=== PATIENT | female | born 1950 | race Caucasian/White ===

== ENCOUNTER 2022-12-30 11:42 | Emergency (ER) | payer OTHER ==
--- OUTSIDE RECORDS SUMMARY | 2022-12-30 11:45 | XMS REPORT | Continuity of Care Document ---
:1950 Author Organization [facility] t Address [address] [place] [address] Dr. Vallejo [address] [place] [id number] Care Team Providers Name Role Phone Gilberto Mccord Attending Clinician Unavailable Problems This patient has no known problems. Allergies, Adverse Reactions, Alerts This patient has no known allergies or adverse reactions. Medications This patient has no known medications. Procedures This patient has no known procedures. Encounters Start End Encounter Admission Attending Care Care Encounter Source Date/Time Date/Time Type Type Clinicians Facility Department ID 2022-11-04 [id number] Common 08:12:04 Gilberto [id number] [facility] Results This patient has no known results.
[2022-12-30] MEDS ORDERED: ACETAMINOPHEN 325 MG TABLET ONE (12:26)
--- NOTE | 2022-12-30 13:31 | RAD REPORT ---
EXAM DESCRIPTION: RAD - Chest Single View - 12/30/2022 1:23 pm CLINICAL HISTORY: fever, cough Chest pain. COMPARISON: No comparisons FINDINGS: Portable technique limits examination quality. Interstitial markings are mildly prominent bilaterally likely related to interstitial pulmonary edema or viral infection. The heart is mildly enlarged in size. No displaced fractures.
[2022-12-30 13:36] LABS: SARS-COV-2 RT PCR POSITIVE (NEGATIVE)
--- NOTE | 2022-12-30 13:51 | EDPHYS ---
Physician Documentation [facility] Name: Dennise Story Age: 72 yrs Sex: Female : 1950 Arrival Date: 12/30/2022 Time: 11:48 Bed 25 Private MD: Michell Mccordh ED Physician Mehdi Verdin HPI: 12/30 13:49 This 72 yrs old Female presents to ER via Wheelchair with complaints of Fall Injury, jmm Sinus Pain, Runny Nose. 13:49 The patient or guardian reports cough. Onset: The symptoms/episode began/occurred jmm gradually, 1 day(s) ago. Modifying factors: The symptoms are alleviated by nothing. the symptoms are aggravated by nothing. Is a 72-year-old female with history of atrial fibrillation the presents emerged part with complaints of cough, congestion, fever, body aches. Symptoms began about a day ago. has similar symptoms as well.. Historical: - Allergies: 12:04 PENICILLINS; ld1 12:04 Lidocaine; ld1 12:04 Keflex; ld1 12:04 Morphine; ld1 - Home Meds: 12:04 Eliquis 2.5 mg oral tab 1 tab 2 times per day [Active]; ld1 - PMHx: 12:04 Atrial fibrillation; ld1 - PSHx: 12:04 back surgery; knee replacement; Appendectomy; ld1 - Immunization history:: Adult Immunizations up to date, Client reports receiving the 2nd dose of the Covid vaccine. - Social history:: Smoking status: Patient denies any tobacco usage or history of. Patient/guardian denies using alcohol. ROS: 13:49 Constitutional: Positive for body aches, fever. jmm 13:49 Respiratory: Positive for cough. 13:49 Neuro: Positive for weakness. 13:49 All other systems are negative. Exam: 13:49 Constitutional: This is a well developed, well nourished patient who is awake, alert, jmm and in no acute distress. Head/Face: atraumatic. Eyes: EOMI, no conjunctival erythema appreciated ENT: Moist Mucus Membranes Neck: Trachea midline, Supple Chest/axilla: Normal chest wall appearance and motion. Cardiovascular: Regular rate and rhythm. No edema appreciated Respiratory: Normal respirations, no respiratory distress appreciated Abdomen/GI: Non distended Back: Normal ROM Skin: General appearance color normal MS/ Extremity: Moves all extremities, no obvious deformities appreciated, no edema noted to the lower extremities Neuro: Awake and alert Psych: Behavior is normal, Mood is normal, Patient is cooperative and pleasant Vital Signs: 12:01 BP 141 / 83; Pulse 59; Resp 18; Temp 100.5(O); Pulse Ox 94% on R/A; Weight 106.59 kg; ld1 Height 5 ft. 5 in. (165.10 cm); Pain 0/10; 13:07 BP 131 / 54; Pulse 65; Resp 20; Pulse Ox 94% on R/A; eh3 12:01 Body Mass Index 39.11 (106.59 kg, 165.10 cm) ld1 MDM: 12:05 Patient medically screened. [facility] 13:50 Differential diagnosis: flu, URI, Coronavirus, pneumonia. Data reviewed: vital signs, [facility] nurses notes. Counseling: I had a detailed discussion with the patient and/or guardian regarding: the historical points, exam findings, and any diagnostic results supporting the discharge/admit diagnosis, lab results, radiology results, the need for outpatient follow up, to return to the emergency department if symptoms worsen or persist or if there are any questions or concerns that arise at home. ED course: Patient is alert nontoxic in appearance in the ED. Patient advised follow with PCP and otherwise given strict return precautions. Patient understood agrees plan of care.. 12/30 12:06 Order name: COVID-19/FLU A+B/RSV; Complete Time: 14:34 [facility] 12/30 12:06 Order name: Chest Single View XRAY; Complete Time: 13:36 [facility] Administered Medications: 12:25 Drug: Acetaminophen 650 mg Route: PO; eh3 13:00 Follow up: Response: Pain is decreased [facility] Disposition: 18:11 Co-signature as Attending Physician, Mehdi Verdin DO I was immediately available on-site ms3 in the Emergency Department for consultation in the care of the patient. Disposition Summary: 12/30/22 13:51 Discharge Ordered Location: Home [facility] Condition: Stable [facility] Diagnosis - Coronavirus infection, unspecified [facility] Followup: [facility] - With: Gilberto Mccord, DO - When: 1 - 2 days - Reason: Recheck today's complaints, Continuance of care, Re-evaluation by your physician Discharge Instructions: - Discharge Summary Sheet [facility] - COVID-19 [facility] Forms: - Medication Reconciliation Form [facility] - Thank You Letter brianna - Antibiotic Education brianna - Prescription Opioid Use [facility] Prescriptions: - albuterol sulfate 90 mcg/actuation Inhalation HFA aerosol inhaler - inhale 2 puff by INHALATION route every 4 hours; 1 Pump; Refills: 0, Product jmm Selection Permitted - Zithromax Z-Reynaldo 250 mg Oral Tablet - take 1 tablet by ORAL route as directed for 5 days Day 1 - take two (2) tablets [facility] one time. Day 2, 3, 4 , 5 take one (1) tablet once daily.; 6 tablet; Refills: 0, Product Selection Permitted Signatures: Dispatcher [employer] Osito Jackson PA PA jmm Sims, Marcus, DO DO ms3 Laurita Maciel, RN RN ld1 Arline Tong RN RN eh3
--- NOTE | 2022-12-30 13:51 | ER ---
Nurse's Notes [facility] Name: Dennise Story Age: 72 yrs Sex: Female : 1950 Arrival Date: 12/30/2022 Time: 11:48 Bed 25 Private MD: Gilberto Mccord Diagnosis: Coronavirus infection, unspecified Presentation: 12/30 12:01 Chief complaint: Patient states: Fall last night - EMS picked up off of floor. Pt ld1 negative LOC - on blood thinners. C/O sinus pain, runny nose. Coronavirus screen: At this time, the client does not indicate any symptoms associated with coronavirus-19. Ebola Screen: No symptoms or risks identified at this time. Initial Sepsis Screen: Does the patient meet any 2 criteria? No. Patient's initial sepsis screen is negative. Does the patient have a suspected source of infection? No. Patient's initial sepsis screen is negative. Risk Assessment: Do you want to hurt yourself or someone else? Patient reports no desire to harm self or others. Onset of symptoms was December 30, 2022. 12:01 Method Of Arrival: Wheelchair ld1 12:01 Acuity: KEREN 3 ld1 Triage Assessment: 12:04 General: Appears in no apparent distress. comfortable, Behavior is calm, cooperative, ld1 appropriate for age. Pain: Denies pain. EENT: No signs and/or symptoms were reported regarding the EENT system. Neuro: Level of Consciousness is awake, alert, obeys commands, Oriented to person, place, time, situation. Cardiovascular: Capillary refill < 3 seconds Patient's skin is warm and dry. Respiratory: Airway is patent Respiratory effort is even, unlabored. GI: Abdomen is round non-distended. : No signs and/or symptoms were reported regarding the genitourinary system. Derm: No signs and/or symptoms reported regarding the dermatologic system. Musculoskeletal: No signs and/or symptoms reported regarding the musculoskeletal system. Historical: - Allergies: 12:04 PENICILLINS; ld1 12:04 Lidocaine; ld1 12:04 Keflex; ld1 12:04 Morphine; ld1 - Home Meds: 12:04 Eliquis 2.5 mg oral tab 1 tab 2 times per day [Active]; ld1 - PMHx: 12:04 Atrial fibrillation; ld1 - PSHx: 12:04 back surgery; knee replacement; Appendectomy; ld1 - Immunization history:: Adult Immunizations up to date, Client reports receiving the 2nd dose of the Covid vaccine. - Social history:: Smoking status: Patient denies any tobacco usage or history of. Patient/guardian denies using alcohol. Screenin:00 [facility] ED Fall Risk Assessment (Adult) History of falling in the last 3 months, eh3 including since admission Yes- single mechanical fall (1 pt) Confusion or Disorientation No (0 pts) Intoxicated or Sedated No (0 pts) Impaired Gait Yes (1 pt) Mobility Assist Device Used No (0 pt) Altered Elimination No (0 pt) Score/Fall Risk Level 0 - 2 = Low Risk. Abuse screen: Denies threats or abuse. Denies injuries from another. Nutritional screening: No deficits noted. Tuberculosis screening: No symptoms or risk factors identified. Vital Signs: 12:01 BP 141 / 83; Pulse 59; Resp 18; Temp 100.5(O); Pulse Ox 94% on R/A; Weight 106.59 kg; ld1 Height 5 ft. 5 in. (165.10 cm); Pain 0/10; 13:07 BP 131 / 54; Pulse 65; Resp 20; Pulse Ox 94% on R/A; eh3 12:01 Body Mass Index 39.11 (106.59 kg, 165.10 cm) ld1 ED Course: 11:48 Patient arrived in ED. rg4 11:48 Gilberto Mccord DO is Private Physician. rg4 11:53 Osito Connor PA is PHCP. [facility] 11:54 Mehdi Verdin DO is Attending Physician. m 12:04 Triage completed. ld1 12:04 Arm band placed on right wrist. ld1 12:17 Arline Tong, RN is Primary Nurse. eh3 13:00 Patient has correct armband on for positive identification. Bed in low position. Call eh3 light in reach. Side rails up X2. Pulse ox on. NIBP on. 13:25 Chest Single View XRAY In Process Unspecified. EDMS 13:51 Gilberto Mccord DO is Referral Physician. jmm 14:04 No provider procedures requiring assistance completed. Patient did not have IV access eh3 during this emergency room visit. Administered Medications: 12:25 Drug: Acetaminophen 650 mg Route: PO; 3 13:00 Follow up: Response: Pain is decreased 3 Medication: 14:05 VIS not applicable for this client. 3 Outcome: 13:51 Discharge ordered by . emilia 14:04 Discharged to home ambulatory, with family. 3 14:04 Condition: stable 14:04 Discharge instructions given to patient, Instructed on discharge instructions, follow up and referral plans. medication usage, Demonstrated understanding of instructions, follow-up care, medications, Prescriptions given X 2. 14:05 Patient left the ED. 3 Signatures: Dispatcher [employer] EDMS Osito Connor PA PA jmm Garcia, Rubi rg4 Laurita Maciel RN RN ld1 Arline Tong RN RN 3
[2022-12-30 14:36] VITALS: TEMP 100.5; O2SAT 94
[2022-12-30 14:37] VITALS: BP 131/54
== END 2022-12-30 14:05 | disposition home or self-care (01) ==
LOC: ER 11:42
DX: U07.1 COVID-19 (principal); I48.91 Unspecified atrial fibrillation; Z79.01 Long term (current) use of anticoagulants; Z88.0 Allergy status to penicillin; Z88.5 Allergy status to narcotic agent; Z88.8 Allergy status to other drugs, medicaments and biological substances
CPT/HCPCS: 0241U; 71045

== ENCOUNTER 2024-03-14 21:03 | Emergency (ER) | payer BC, OTHER ==
--- OUTSIDE RECORDS SUMMARY | 2024-03-14 21:07 | XMS REPORT | Continuity of Care Document ---
Author Name Unknown Address [address] [facility] [place] [address] [facility] thconnect Address [address] [facility] [address] [place] [address] Care Team Providers Care Mobile Lab Technician Name Role Phone Gilberto Mccord Attending Clinician Unavailable Problems Condition Name Condition Details Condition Category Status Onset Date Resolution Date Last Treatment Date Treating Clinician Comments Source [id number] Paroxysmal atrial fibrillati on Problem Common [facility] [id number] Morbid (severe) obesity due to excess calories Problem Common [facility] [id number] Mixed hyperlipid emia Problem [facility] [id number] Essential (primary) hypertensi on Problem Common [facility] [id number] Acquired hypothyroi dism Problem Common [facility] [id number] Vitamin D deficiency Problem Common [facility] [id number] Body mass index [BMI] 40.0-44.9, adult Problem Common [facility] [id number] Vitreous floaters of both eyes Problem Common [facility] [id number] Presbyopia Problem Comm on [facility] [id number] Systolic congestive heart failure, unspecifie d HF chronicity Problem Common [facility] [id number] Pseudophak ia Problem Common [facility] [id number] Macular degenerati on, unspecifie d laterality , unspecifie d type Problem [facility] Allergies, Adverse Reactions, Alerts Allergy Name Allergy Type Status Severity Reaction(s) Onset Date Inactive Date Treating Clinician Comments Source [id number] Drug allergy Active Unknown [facility] 8091 Drug allergy Active Unknown [facility] lidocain e lidocain e Active Unknown [facility] morphine morphine Active Unknown Commo n [facility] Social History Social Habit Start Date Stop Date Quantity Comments Source Sex Assigned At [facility] History of Tobacco Use [facility] Smoking Status Start Date Stop Date Source Never Smoker [facility] Medications Ordered Medication Name Filled Medication Name Start Date Stop Date Current Medication? Ordering Clinician Indication Dosage Frequency Signature (SIG) Comments Components Source Polymyxin B-Trimethop rim 55656-1.1 UNIT/ML Polymyxin B-Trimethop rim 07178-0.1 UNIT/ML 3-0 - 00:00: 00 No 1{drop_ into_af fected_ eye} QID Polymyxin B-Trimetho prim 94691-9.1 UNIT/ML Furosemide 20 MG Furosemide 20 MG 3-0 - 00:00: 00 No QD Furosemide 20 MG Polymyxin B-Trimethop rim 14695-0.1 UNIT/ML Polymyxin B-Trimethop rim 68912-9.1 UNIT/ML 3-0 12 00:00: 00 No 1{drop_ into_af fected_ eye} QID Polymyxin B-Trimetho prim 74416-7.1 UNIT/ML Furosemide 20 MG Furosemide 20 MG 2023-0 -12 00:00: 00 No QD Furosemide 20 MG Polymyxin B-Trimethop rim 95516-2.1 UNIT/ML Polymyxin B-Trimethop rim 60643-0.1 UNIT/ML 3-0 -12 00:00: 00 No 1{drop_ into_af fected_ eye} QID Polymyxin B-Trimetho prim 00108-3.1 UNIT/ML Furosemide 20 MG Furosemide 20 MG 2023-0 -12 00:00: 00 No QD Furosemide 20 MG Polymyxin B-Trimethop rim 28127-6.1 UNIT/ML Polymyxin B-Trimethop rim 93979-2.1 UNIT/ML 3-0 5-12 00:00: 00 No 1{drop_ into_af fected_ eye} QID Polymyxin B-Trimetho prim 73791-4.1 UNIT/ML Furosemide 20 MG Furosemide 20 MG 3-0 5-12 00:00: 00 No QD Furosemide 20 MG Polymyxin B-Trimethop rim 60416-2.1 UNIT/ML Polymyxin B-Trimethop rim 53011-9.1 UNIT/ML 2022-0 -12 00:00: 00 No 1{drop_ into_af fected_ eye} QID Polymyxin B-Trimetho prim 69633-5.1 UNIT/ML Furosemide 20 MG Furosemide 20 MG 2022-0 5- 00:00: 00 No QD Furosemide 20 MG Sucralfate 1 GM Sucralfate 1 GM 0 2- 00:00: 00 No 1{table t_on_an _empty_ stomach } QD Sucralfate 1 GM Sucralfate 1 GM Sucralfate 1 2022-0 2-17 00:00: 00 No 1{table t_on_an _empty_ stomach } QD Sucralfate 1 GM Sucralfate 1 GM Sucralfate 1 2022-0 2-17 00:00: 00 No 1{table t_on_an _empty_ stomach } QD Sucralfate 1 GM Sucralfate 1 GM Sucralfate 1 2022-0 2-17 00:00: 00 No 1{table t_on_an _empty_ stomach } QD Sucralfate 1 GM Sucralfate 1 GM Sucralfate 1 2022-0 2-17 00:00: 00 No 1{table t_on_an _empty_ stomach } QD Sucralfate 1 GM Sucralfate 1 GM Sucralfate 1 GM 2022-0 2-17 00:00: 00 No 1{table t_on_an _empty_ stomach } QD Sucralfate 1 GM Sucralfate 1 GM Sucralfate 1 GM 2022-0 2-17 00:00: 00 No 1{table t_on_an _empty_ stomach } QD Sucralfate 1 GM Sucralfate 1 GM Sucralfate 1 GM 2023-0 2-17 00:00: 00 No 1{table t_on_an _empty_ stomach } QD Sucralfate 1 GM Sucralfate 1 GM Sucralfate 1 2-17 00:00: 00 No 1{table t_on_an _empty_ stomach } QD Sucralfate 1 GM Sucralfate 1 GM Sucralfate 1 2-17 00:00: 00 No 1{table t_on_an _empty_ stomach } QD Sucralfate 1 GM Sucralfate 1 GM Sucralfate 1 2-17 00:00: 00 No 1{table t_on_an _empty_ stomach } QD Sucralfate 1 GM Sucralfate 1 GM Sucralfate 1 2-17 00:00: 00 No 1{table t_on_an _empty_ stomach } QD Sucralfate 1 GM Sucralfate 1 GM Sucralfate 1 2-17 00:00: 00 No 1{table t_on_an _empty_ stomach } QD Sucralfate 1 GM Sucralfate 1 GM Sucralfate 1 2-17 00:00: 00 No 1{table t_on_an _empty_ stomach } QD Sucralfate 1 GM Sucralfate 1 GM Sucralfate 1 2-17 00:00: 00 No 1{table t_on_an _empty_ stomach } QD Sucralfate 1 GM Vitamin D3 Vitamin D3 No Vitamin D3 Eliquis 5 MG Eliquis 5 MG No 1{table t} BID Eliquis 5 MG Benzonatate 200 MG Benzonatate 200 MG No 1{capsu le} TID Benzonatat e 200 MG Levothyroxi ne Sodium 75 MCG Levothyroxi ne Sodium 75 MCG No QD Levothyrox ine Sodium 75 MCG Spironolact one 25 MG Spironolact one 25 MG No 1{table t} QD Spironolac tone 25 MG Flecainide Acetate 100 MG Flecainide Acetate 100 MG No Flecainide Acetate 100 MG Lasix 40 MG Lasix 40 MG No 1{table t} QD Lasix 40 MG Metoprolol Tartrate 50 MG Metoprolol Tartrate 50 MG No Metoprolol Tartrate 50 MG Vitamin D3 Vitamin D3 No Vitamin D3 Eliquis 5 MG Eliquis 5 MG No 1{table t} BID Eliquis 5 MG Benzonatate 200 MG Benzonatate 200 MG No 1{capsu le} TID Benzonatat e 200 MG Levothyroxi ne Sodium 75 MCG Levothyroxi ne Sodium 75 MCG No QD Levothyrox ine Sodium 75 MCG Spironolact one 25 MG Spironolact one 25 MG No 1{table t} QD Spironolac tone 25 MG Flecainide Acetate 100 MG Flecainide Acetate 100 MG No Flecainide Acetate 100 MG Lasix 40 MG Lasix 40 MG No 1{table t} QD Lasix 40 MG Metoprolol Tartrate 50 MG Metoprolol Tartrate 50 MG No Metoprolol Tartrate 50 MG Metoprolol Tartrate 50 MG Metoprolol Tartrate 50 MG No Metoprolol Tartrate 50 MG Benzonatate 200 MG Benzonatate 200 MG No 1{capsu le} TID Benzonatat e 200 MG Vitamin B12 Vitamin B12 No Vi tamin B12 Spironolact one 25 MG Spironolact one 25 MG No 1{table t} QD Spironolac tone 25 MG Levothyroxi ne Sodium 75 MCG Levothyroxi ne Sodium 75 MCG No QD Levothyrox ine Sodium 75 MCG Eliquis 5 MG Eliquis 5 MG No 1{table t} BID Eliquis 5 MG Flecainide Acetate 100 MG Flecainide Acetate 100 MG No BID Flecainide Acetate 100 MG Furosemide 20 MG Furosemide 20 MG No QD Furosemide 20 MG Metoprolol Tartrate 50 MG Metoprolol Tartrate 50 MG No Metoprolol Tartrate 50 MG Benzonatate 200 MG Benzonatate 200 MG No 1{capsu le} TID Benzonatat e 200 MG Vitamin B12 Vitamin B12 No Vi tamin B12 Spironolact one 25 MG Spironolact one 25 MG No 1{table t} QD Spironolac tone 25 MG Levothyroxi ne Sodium 75 MCG Levothyroxi ne Sodium 75 MCG No QD Levothyrox ine Sodium 75 MCG Eliquis 5 MG Eliquis 5 MG No 1{table t} BID Eliquis 5 MG Flecainide Acetate 100 MG Flecainide Acetate 100 MG No BID Flecainide Acetate 100 MG Furosemide 20 MG Furosemide 20 MG No QD Furosemide 20 MG Eliquis 5 MG Eliquis 5 MG No 1{table t} BID Eliquis 5 MG Metoprolol Tartrate 50 MG Metoprolol Tartrate 50 MG No Metoprolol Tartrate 50 MG Benzonatate 200 MG Benzonatate 200 MG No 1{capsu le} TID Benzonatat e 200 MG Vitamin B12 Vitamin B12 No Vi tamin B12 Spironolact one 25 MG Spironolact one 25 MG No 1{table t} QD Spironolac tone 25 MG Levothyroxi ne Sodium 75 MCG Levothyroxi ne Sodium 75 MCG No QD Levothyrox ine Sodium 75 MCG Eliquis 5 MG Eliquis 5 MG No 1{table t} BID Eliquis 5 MG Vitamin B12 Vitamin B12 No Vi tamin B12 Flecainide Acetate 100 MG Flecainide Acetate 100 MG No BID Flecainide Acetate 100 MG Furosemide 20 MG Furosemide 20 MG No QD Furosemide 20 MG Levothyroxi ne Sodium 75 MCG Levothyroxi ne Sodium 75 MCG No QD Levothyrox ine Sodium 75 MCG Metoprolol Tartrate 50 MG Metoprolol Tartrate 50 MG No Metoprolol Tartrate 50 MG Benzonatate 200 MG Benzonatate 200 MG No 1{capsu le} TID Benzonatat e 200 MG Vitamin B12 Vitamin B12 No Vi tamin B12 Spironolact one 25 MG Spironolact one 25 MG No 1{table t} QD Spironolac tone 25 MG Levothyroxi ne Sodium 75 MCG Levothyroxi ne Sodium 75 MCG No QD Levothyrox ine Sodium 75 MCG Eliquis 5 MG Eliquis 5 MG No 1{table t} BID Eliquis 5 MG Flecainide Acetate 100 MG Flecainide Acetate 100 MG No BID Flecainide Acetate 100 MG Furosemide 20 MG Furosemide 20 MG No QD Furosemide 20 MG Flecainide Acetate 100 MG Flecainide Acetate 100 MG No Flecainide Acetate 100 MG Metoprolol Tartrate 50 MG Metoprolol Tartrate 50 MG No Metoprolol Tartrate 50 MG Benzonatate 200 MG Benzonatate 200 MG No 1{capsu le} TID Benzonatat e 200 MG Spironolact one 25 MG Spironolact one 25 MG No 1{table t} Spironolac tone 25 MG Vitamin B12 Vitamin B12 No Vi tamin B12 Spironolact one 25 MG Spironolact one 25 MG No 1{table t} QD Spironolac tone 25 MG Levothyroxi ne Sodium 75 MCG Levothyroxi ne Sodium 75 MCG No QD Levothyrox ine Sodium 75 MCG Eliquis 5 MG Eliquis 5 MG No 1{table t} BID Eliquis 5 MG Flecainide Acetate 100 MG Flecainide Acetate 100 MG No BID Flecainide Acetate 100 MG Furosemide 20 MG Furosemide 20 MG No QD Furosemide 20 MG Metoprolol Tartrate 50 MG Metoprolol Tartrate 50 MG No Metoprolol Tartrate 50 MG Benzonatate 200 MG Benzonatate 200 MG No 1{capsu le} TID Benzonatat e 200 MG Vitamin B12 Vitamin B12 No Vi tamin B12 Spironolact one 25 MG Spironolact one 25 MG No 1{table t} QD Spironolac tone 25 MG Levothyroxi ne Sodium 75 MCG Levothyroxi ne Sodium 75 MCG No QD Levothyrox ine Sodium 75 MCG Eliquis 5 MG Eliquis 5 MG No 1{table t} BID Eliquis 5 MG Flecainide Acetate 100 MG Flecainide Acetate 100 MG No BID Flecainide Acetate 100 MG Furosemide 20 MG Furosemide 20 MG No QD Furosemide 20 MG Metoprolol Tartrate 50 MG Metoprolol Tartrate 50 MG No Metoprolol Tartrate 50 MG Benzonatate 200 MG Benzonatate 200 MG No 1{capsu le} TID Benzonatat e 200 MG Vitamin B12 Vitamin B12 No Vi tamin B12 Spironolact one 25 MG Spironolact one 25 MG No 1{table t} QD Spironolac tone 25 MG Levothyroxi ne Sodium 75 MCG Levothyroxi ne Sodium 75 MCG No QD Levothyrox ine Sodium 75 MCG Eliquis 5 MG Eliquis 5 MG No 1{table t} BID Eliquis 5 MG Flecainide Acetate 100 MG Flecainide Acetate 100 MG No BID Flecainide Acetate 100 MG Furosemide 20 MG Furosemide 20 MG No QD Furosemide 20 MG Metoprolol Tartrate 50 MG Metoprolol Tartrate 50 MG No 1{table t_with_ food} BID Metoprolol Tartrate 50 MG Furosemide 20 MG Furosemide 20 MG No QD Furosemide 20 MG Flecainide Acetate 100 MG Flecainide Acetate 100 MG No BID Flecainide Acetate 100 MG Levothyroxi ne Sodium 75 MCG Levothyroxi ne Sodium 75 MCG No QD Levothyrox ine Sodium 75 MCG Benzonatate 200 MG Benzonatate 200 MG No 1{capsu le} TID Benzonatat e 200 MG Eliquis 5 MG Eliquis 5 MG No 1{table t} BID Eliquis 5 MG Spironolact one 25 MG Spironolact one 25 MG No 1{table t} QD Spironolac tone 25 MG Vitamin B12 Vitamin B12 No Vi tamin B12 Spironolact one 25 MG Spironolact one 25 MG No 1{table t} QD Spironolac tone 25 MG Levothyroxi ne Sodium 75 MCG Levothyroxi ne Sodium 75 MCG No QD Levothyrox ine Sodium 75 MCG Flecainide Acetate 100 MG Flecainide Acetate 100 MG No BID Flecainide Acetate 100 MG Vitamin B12 Vitamin B12 No Vi tamin B12 Furosemide 20 MG Furosemide 20 MG No QD Furosemide 20 MG Metoprolol Tartrate 50 MG Metoprolol Tartrate 50 MG No 1{table t_with_ food} BID Metoprolol Tartrate 50 MG Eliquis 5 MG Eliquis 5 MG No 1{table t} BID Eliquis 5 MG Spironolact one 25 MG Spironolact one 25 MG No 1{table t} QD Spironolac tone 25 MG Levothyroxi ne Sodium 75 MCG Levothyroxi ne Sodium 75 MCG No QD Levothyrox ine Sodium 75 MCG Flecainide Acetate 100 MG Flecainide Acetate 100 MG No BID Flecainide Acetate 100 MG Vitamin B12 Vitamin B12 No Vi tamin B12 Furosemide 20 MG Furosemide 20 MG No QD Furosemide 20 MG Metoprolol Tartrate 50 MG Metoprolol Tartrate 50 MG No 1{table t_with_ food} BID Metoprolol Tartrate 50 MG Eliquis 5 MG Eliquis 5 MG No 1{table t} BID Eliquis 5 MG Vitamin D3 Vitamin D3 No Vitamin D3 Eliquis 5 MG Eliquis 5 MG No 1{table t} BID Eliquis 5 MG Benzonatate 200 MG Benzonatate 200 MG No 1{capsu le} TID Benzonatat e 200 MG Metoprolol Tartrate 50 MG Metoprolol Tartrate 50 MG No Metoprolol Tartrate 50 MG Spironolact one 25 MG Spironolact one 25 MG No 1{table t} Spironolac tone 25 MG Lasix 40 MG Lasix 40 MG No 1{table t} QD Lasix 40 MG Flecainide Acetate 100 MG Flecainide Acetate 100 MG No Flecainide Acetate 100 MG Levothyroxi ne Sodium 75 MCG Levothyroxi ne Sodium 75 MCG No QD Levothyrox ine Sodium 75 MCG Vitamin D3 Vitamin D3 No Vitamin D3 Eliquis 5 MG Eliquis 5 MG No 1{table t} BID Eliquis 5 MG Benzonatate 200 MG Benzonatate 200 MG No 1{capsu le} TID Benzonatat e 200 MG Levothyroxi ne Sodium 75 MCG Levothyroxi ne Sodium 75 MCG No QD Levothyrox ine Sodium 75 MCG Spironolact one 25 MG Spironolact one 25 MG No 1{table t} QD Spironolac tone 25 MG Flecainide Acetate 100 MG Flecainide Acetate 100 MG No Flecainide Acetate 100 MG Lasix 40 MG Lasix 40 MG No 1{table t} QD Lasix 40 MG Metoprolol Tartrate 50 MG Metoprolol Tartrate 50 MG No Metoprolol Tartrate 50 MG Vitamin D3 Vitamin D3 No Vitamin D3 Eliquis 5 MG Eliquis 5 MG No 1{table t} BID Eliquis 5 MG Benzonatate 200 MG Benzonatate 200 MG No 1{capsu le} TID Benzonatat e 200 MG Levothyroxi ne Sodium 75 MCG Levothyroxi ne Sodium 75 MCG No QD Levothyrox ine Sodium 75 MCG Spironolact one 25 MG Spironolact one 25 MG No 1{table t} QD Spironolac tone 25 MG Flecainide Acetate 100 MG Flecainide Acetate 100 MG No Flecainide Acetate 100 MG Lasix 40 MG Lasix 40 MG No 1{table t} QD Lasix 40 MG Metoprolol Tartrate 50 MG Metoprolol Tartrate 50 MG No Metoprolol Tartrate 50 MG Immunizations Ordered Immunization Name Filled Immunization Name Date Status Comments Source Prevnar 20 (PCV20) Prevnar 20 (PCV20) Unknown Completed [facility] Prevnar 20 (PCV20) Prevnar 20 (PCV20) Unknown Completed [facility] Prevnar 20 (PCV20) Prevnar 20 (PCV20) Unknown Completed [facility] Prevnar 20 (PCV20) Prevnar 20 (PCV20) Unknown Completed [facility] Prevnar 20 (PCV20) Prevnar 20 (PCV20) Unknown Completed [facility] Prevnar 20 (PCV20) Prevnar 20 (PCV20) Unknown Completed [facility] Prevnar 20 (PCV20) Prevnar 20 (PCV20) Unknown Completed [facility] Prevnar 20 (PCV20) Prevnar 20 (PCV20) Unknown Completed [facility] Prevnar 20 (PCV20) Prevnar 20 (PCV20) Unknown Completed [facility] Prevnar 20 (PCV20) Prevnar 20 (PCV20) Unknown Completed [facility] Prevnar 20 (PCV20) Prevnar 20 (PCV20) Unknown Completed [facility] Prevnar 20 (PCV20) Prevnar 20 (PCV20) Unknown Completed [facility] Prevnar 20 (PCV20) Prevnar 20 (PCV20) Unknown Completed [facility] Prevnar 20 (PCV20) Prevnar 20 (PCV20) Unknown Completed [facility] Prevnar 20 (PCV20) Prevnar 20 (PCV20) Unknown Completed [facility] Vital Signs Vital Name Observation Time Observation Value Comments S ource height 2024-02-19 10:00:00 63 [in_i] Commo n [facility] weight 2024-02-19 10:00:00 235 [lb_av] Comm on [facility] temperature 2024-02-19 10:00:00 97.3 [degF] Com mon [facility] bmi 2024-02-19 10:00:00 41.62 kg/m2 Comm on [facility] oximetry 2024-02-19 10:00:00 97 % Commo n [facility] blood pressure systolic 2024-02-19 10:00:00 122 mm[Hg] Common [facility] blood pressure diastolic 2024-02-19 10:00:00 70 mm[Hg] [facility] height 2023-10-20 08:40:00 63 [in_i] Commo n [facility] weight 2023-10-20 08:40:00 232 [lb_av] Comm on [facility] temperature 2023-10-20 08:40:00 97.6 [degF] Com mon [facility] bmi 2023-10-20 08:40:00 41.09 kg/m2 Comm on [facility] blood pressure systolic 2023-10-20 08:40:00 132 mm[Hg] [facility] blood pressure diastolic 2023-10-20 08:40:00 72 mm[Hg] Common [facility] height 2023-04-03 08:30:00 63 [in_i] Commo n [facility] weight 2023-04-03 08:30:00 241.0 [lb_av] Co mmon [facility] temperature 2023-04-03 08:30:00 96.7 [degF] Com mon [facility] bmi 2023-04-03 08:30:00 42.69 kg/m2 Comm on [facility] oximetry 2023-04-03 08:30:00 95 % Commo n [facility] respiratory rate 2023-04-03 08:30:00 17 /min Common [facility] blood pressure systolic 2023-04-03 08:30:00 138 mm[Hg] [facility] blood pressure diastolic 2023-04-03 08:30:00 73 mm[Hg] [facility] height 2023-01-05 15:30:00 63 [in_i] Commo n [facility] weight 2023-01-05 15:30:00 230 [lb_av] Comm on [facility] temperature 2023-01-05 15:30:00 98 [degF] Comm on [facility] bmi 2023-01-05 15:30:00 40.74 kg/m2 Comm on [facility] blood pressure systolic 2023-01-05 15:30:00 132 mm[Hg] [facility] blood pressure diastolic 2023-01-05 15:30:00 72 mm[Hg] [facility] Encounters Start Date/Time End Date/Time Encounter Type Admission Type Attending Clinicians Care Facility Care Department Encounter ID Source 2023-12-11 13:16:01 Outpatient Mccord, Gilberto [facility] [id number] [facility] 2023-04-07 11:08:01 Outpatient Mccord, Gilberto [facility] [id number] [facility] 2023-04-01 10:11:04 Outpatient Mccord, Gilberto [facility] [id number] [facility] 2023-01-05 15:22:02 Outpatient Mccord, Gilberto [facility] [id number] [facility] 2023-01-02 13:58:01 Outpatient Mccord, Gilberto [facility] [id number] [facility] 2022-11-04 08:12:04 Outpatient Mccord, Gilberto [facility] [id number] [facility] 2024-02-19 00:00:00 2024-02-19 00:00:00 OFFICE VISIT ESTAB PT LEVEL 4 [facility] [id number] [facility] 2024-02-19 00:00:00 2024-02-19 00:00:00 (TEL) [facility] [id number] [facility] 2024-02-04 00:00:00 2024-02-04 00:00:00 (TEL) [facility] [id number] [facility] 2024-01-01 00:00:00 2024-01-01 00:00:00 (TEL) [facility] [id number] [facility] 2023-12-14 00:00:00 2023-12-14 00:00:00 (TEL) [facility] [id number] [facility] 2023-12-11 00:00:00 2023-12-11 00:00:00 (TEL) [facility] [id number] [facility] 2023-10-20 00:00:00 2023-10-20 00:00:00 (TEL) [facility] [id number] [facility] 2023-10-20 00:00:00 2023-10-20 00:00:00 OFFICE VISIT ESTAB PT LEVEL 4 [facility] [id number] [facility] 2023-09-11 00:00:00 2023-09-11 00:00:00 (TEL) [facility] [id number] [facility] 2023-08-17 00:00:00 2023-08-17 00:00:00 (TEL) [facility] [id number] [facility] 2023-04-03 00:00:00 2023-04-03 00:00:00 OFFICE VISIT ESTAB PT LEVEL 4 [facility] [id number] [facility] 2023-03-17 00:00:00 2023-03-17 00:00:00 (TEL) [facility] [id number] [facility] 2023-03-09 00:00:00 2023-03-09 00:00:00 (TEL) [facility] [id number] [facility] 2023-01-08 00:00:00 2023-01-08 00:00:00 (TEL) [facility] [id number] [facility] 2023-01-05 00:00:00 2023-01-05 00:00:00 OFFICE VISIT ESTAB PT LEVEL 4 [facility] [id number] [facility] 2022-12-30 00:00:00 2022-12-30 00:00:00 [facility]EL[facility] [id number] Results Test Description Test Time Test Comments Results Result Co mments Source TSH REFLEX TO FREE [id number] 00:00:00* Test Item Value Reference Range Interpretation Comme nts TSH REFLEX TO FREE T4 (test code = 19650-6) 2.080 UIU/ML See_Comment [Automated messa ge] The system which generated this result transmitted reference range: 0.400-4.100 UIU/ML. The reference range was not used to interpret this result as normal/abnormal. VITAMIN D, 25 [id number] 00:00:00* Test Item Value Reference Range Interpretation Comme [facility] VITAMIN D, 25 OH (test code = 1989-3) 66 NG/ML SEE BELOW NG/ML LIPID PANEL WITH REFLEX DIRECT [id number] 00:00:00* Test Item Value Reference Range Interpretation Comme nts CALC LDL CHOL (test code = 46322-7) 142 MG/DL See_Comment H [Automated messa ge] The system which generated this result transmitted reference range: <100 MG/DL. The reference range was not used to interpret this result as normal/abnormal. CHOLESTEROL (test code = 2093-3) 212 MG/DL See_Comment H [Automated messa ge] The system which generated this result transmitted reference range: <200 MG/DL. The reference range was not used to interpret this result as normal/abnormal. HDL CHOLESTEROL (test code = 2085-9) 41 MG/DL See_Comment [Automated messa ge] The system which generated this result transmitted reference range: >39 MG/DL. The reference range was not used to interpret this result as normal/abnormal. RISK RATIO LDL/HDL (test code = 43127-0) 3.46 RATIO See_Comment H [Automated message] The system which generated this result transmitted reference range: <3.22 RATIO. The reference range was not used to interpret this result as normal/abnormal. TRIGLYCERIDES (test code = 2571-8) 159 MG/DL See_Comment H [Automated messa ge] The system which generated this result transmitted reference range: <150 MG/DL. The reference range was not used to interpret this result as normal/abnormal. COMPREHENSIVE METABOLIC [id number] 00:00:00* Test Item Value Reference Range Interpretation Comme nts ALBUMIN (test code = 1751-7) 4.4 G/DL See_Comment [Automated messa ge] The system which generated this result transmitted reference range: 3.5-5.2 G/DL. The reference range was not used to interpret this result as normal/abnormal. ALKALINE PHOSPHATASE (test code = 6768-6) 92 U/L See_Comment [Automated message] The system which generated this result transmitted reference range: 40-142 U/L. The reference range was not used to interpret this result as normal/abnormal. BILIRUBIN, TOTAL (test code = 1975-2) 0.4 MG/DL See_Comment [Automated message] The system which generated this result transmitted reference range: <=1.2 MG/DL. The reference range was not used to interpret this result as normal/abnormal. BUN (test code = 3094-0) 19 MG/DL See_Comment [Automated messa ge] The system which generated this result transmitted reference range: 8-23 MG/DL. The reference range was not used to interpret this result as normal/abnormal. CALCIUM (test code = 36845-2) 9.9 MG/DL See_Comment [Automated messa ge] The system which generated this result transmitted reference range: 8.5-10.5 MG/DL. The reference range was not used to interpret this result as normal/abnormal. CALC A/G RATIO (test code = 1759-0) 1.9 RATIO See_Comment [Automated messa ge] The system which generated this result transmitted reference range: 1.0-2.6 RATIO. The reference range was not used to interpret this result as normal/abnormal. CALC BUN/CREAT (test code = 3097-3) 21 RATIO See_Comment [Automated messa ge] The system which generated this result transmitted reference range: 6-28 RATIO. The reference range was not used to interpret this result as normal/abnormal. CALC GLOBULIN (test code = 77145-5) 2.3 G/DL See_Comment [Automated messa ge] The system which generated this result transmitted reference range: 1.9-3.7 G/DL. The reference range was not used to interpret this result as normal/abnormal. CARBON DIOXIDE (test code = 1962-8) 27 MEQ/L See_Comment [Automated messa ge] The system which generated this result transmitted reference range: 19-31 MEQ/L. The reference range was not used to interpret this result as normal/abnormal. CHLORIDE (test code = 2075-0) 103 MEQ/L See_Comment [Automated messa ge] The system which generated this result transmitted reference range: 95-107 MEQ/L. The reference range was not used to interpret this result as normal/abnormal. CREATININE (test code = 2160-0) 0.89 MG/DL See_Comment [Automated messa ge] The system which generated this result transmitted reference range: 0.60-1.30 MG/DL. The reference range was not used to interpret this result as normal/abnormal. eGFR (2020 CKD-EPI) (test code = 37117-9) 68 ML/MIN/1.73 See_Comment [Automated messa ge] The system which generated this result transmitted reference range: >60 ML/MIN/1.73. The reference range was not used to interpret this result as normal/abnormal. GLUCOSE (test code = 1558-6) 92 MG/DL See_Comment [Automated messa ge] The system which generated this result transmitted reference range: 70-99 MG/DL. The reference range was not used to interpret this result as normal/abnormal. POTASSIUM (test code = 2823-3) 4.8 MEQ/L See_Comment [Automated messa ge] The system which generated this result transmitted reference range: 3.5-5.4 MEQ/L. The reference range was not used to interpret this result as normal/abnormal. PROTEIN, TOTAL (test code = 2885-2) 6.7 G/DL See_Comment [Automated messa ge] The system which generated this result transmitted reference range: 6.1-8.3 G/DL. The reference range was not used to interpret this result as normal/abnormal. AST (test code = 1920-8) 16 U/L See_Comment [Automated messa ge] The system which generated this result transmitted reference range: 9-40 U/L. The reference range was not used to interpret this result as normal/abnormal. ALT (test code = 1742-6) 11 U/L See_Comment [Automated cafegivea ge] The system which generated this result transmitted reference range: 5-40 U/L. The reference range was not used to interpret this result as normal/abnormal. SODIUM (test code = 2951-2) 143 MEQ/L See_Comment [Automated cafegivea ge] The system which generated this result transmitted reference range: 133-146 MEQ/L. The reference range was not used to interpret this result as normal/abnormal.
[2024-03-14] MEDS ORDERED: FENTANYL CITR 100 MCG/2 ML ONE (21:53)
--- NOTE | 2024-03-14 22:17 | RAD REPORT ---
EXAM DESCRIPTION: RAD - Ankle Left 3 View - 03/14/2024 10:11 pm CLINICAL HISTORY: PAIN COMPARISON: No comparisons FINDINGS: Significant soft tissue swelling is seen about the ankle. Mild to moderate the ankle arthr itic changes. No acute fracture or dislocation seen. Moderate posterior and plantar calcaneal spur.
--- NOTE | 2024-03-14 23:26 | EDPHYS ---
Physician Documentation [facility] Name: Dennise Story Age: 73 yrs Sex: Female : 1950 Arrival Date: 03/14/2024 Time: 21:03 Bed 15 Private MD: ED Physician Tammy Georges HPI: 03/14 23:23 This 73 yrs old Female presents to ER via Wheelchair with complaints of ankle pain. ci 23:23 Patient is a 73-year-old female with PMH A-fib on Eliquis who presents to the ED with ci left ankle pain that began this evening while she was standing. Patient heard a pop. She has had difficulty bearing weight. No fall/trauma. Has tried ice with minimal improvement.. Historical: - Allergies: 21:18 GABAPENTIN; 21:18 Keflex; 21:18 Lidocaine; 21:18 Morphine; 21:18 PENICILLINS; 8 - Home Meds: 21:18 Eliquis 2.5 mg Oral tab 1 tab 2 times per day [Active]; 8 - PMHx: 21:18 Atrial fibrillation; 8 - PSHx: 21:18 Appendectomy; back surgery; hysterectomy; knee replacement; 8 - Immunization history:: Adult Immunizations up to date. - Infectious Disease History:: Denies. - Social history:: Smoking status: Patient denies any tobacco usage or history of. Patient/guardian denies using alcohol, street drugs. - History obtained from: , daughter. ROS: 23:23 Constitutional: Negative for fever, chills, and weight loss, Cardiovascular: Negative ci for chest pain, palpitations, and edema, Respiratory: Negative for shortness of breath, cough, wheezing, and pleuritic chest pain, 23:23 MS/extremity: Positive for pain, swelling, tenderness, Negative for injury or acute deformity, abrasion, ecchymosis, erythema, tingling, warmth, 23:23 Skin: Negative for abrasions, cellulitis, discoloration, hematoma, Exam: 23:23 Constitutional: This is a well developed, well nourished patient who is awake, alert, ci and in no acute distress. Head/Face: Normocephalic, atraumatic. Eyes: Pupils equal round and reactive to light, extra-ocular motions intact. Lids and lashes normal. Conjunctiva and sclera are non-icteric and not injected. Cornea within normal limits. Periorbital areas with no swelling, redness, or edema. ENT: Nares patent. No nasal discharge, no septal abnormalities noted. Tympanic membranes are normal and external auditory canals are clear. Oropharynx with no redness, swelling, or masses, exudates, or evidence of obstruction, uvula midline. Mucous membranes moist. Neck: Trachea midline, no thyromegaly or masses palpated, and no cervical lymphadenopathy. Supple, full range of motion without nuchal rigidity, or vertebral point tenderness. No Meningismus. Chest/axilla: Normal chest wall appearance and motion. Nontender with no deformity. No lesions are appreciated. Cardiovascular: Regular rate and rhythm with a normal S1 and S2. No gallops, murmurs, or rubs. Normal PMI, no JVD. No pulse deficits. Respiratory: Lungs have equal breath sounds bilaterally, clear to auscultation and percussion. No rales, rhonchi or wheezes noted. No increased work of breathing, no retractions or nasal flaring. Abdomen/GI: Soft, non-tender, with normal bowel sounds. No distension or tympany. No guarding or rebound. No evidence of tenderness throughout. Back: No spinal tenderness. No costovertebral tenderness. Full range of motion. Skin: Warm, dry with normal turgor. Normal color with no rashes, no lesions, and no evidence of cellulitis. Neuro: Awake and alert, GCS 15, oriented to person, place, time, and situation. Cranial nerves II-XII grossly intact. Motor strength 5/5 in all extremities. Sensory grossly intact. Cerebellar exam normal. Normal gait. Psych: Awake, alert, with orientation to person, place and time. Behavior, mood, and affect are within normal limits. 23:23 Musculoskeletal/extremity: Extremities: Left ankle atraumatic. Moderate swelling and tenderness to palpation to the left lateral malleolus. Negative Mcfarlane's test., Pulses: are normal with no appreciated deficits, Perfusion: the extremity is pink, warm, with brisk capillary refill, Calf tenderness, is absent, Sensation intact. Compartment Syndrome exam of affected extremity: is normal. no numbness, no tingling, no sensation deficit, no palor, no weak pulses, Joints: All joints appear normal with full range of motion. DVT Exam: negative Homans' sign noted on exam, no appreciated bluish discoloration, no erythema, no increased warmth, Vital Signs: 21:17 BP 152 / 66; Pulse 62; Resp 18; Temp 98(TE); Pulse Ox 97% on R/A; Weight 104.33 kg (R); km8 Height 5 ft. 6 in. ; Pain 5/10; 22:45 BP 133 / 60; Pulse 58; Resp 17; Temp 98; Pulse Ox 98% ; Pain 4/10; bm8 23:51 BP 145 / 77; Pulse 67; Resp 18; Temp 98; Pulse Ox 99% ; Pain 2/10; bm8 21:17 Body Mass Index 37.12 (104.33 kg, 167.64 cm) km8 21:17 Pain Scale: Adult km8 22:45 Pain Scale: Adult bm8 23:51 Pain Scale: Adult bm8 Julieth Coma Score: 22:45 Eye Response: spontaneous(4). Motor Response: obeys commands(6). Verbal Response: bm8 oriented(5). Total: 15. MDM: 21:21 Patient medically screened. ci 23:23 Differential Diagnosis Osteoarthritis, rheumatoid arthritis, ankle sprain/strain, ci fracture, dislocation. Data reviewed: vital signs, nurses notes. ED course: Patient arrives to the ED hemodynamically stable and in no acute distress. Left ankle atraumatic but does have moderate tenderness and swelling to left lateral malleolus. Negative Mcfarlane's test, no tenderness to Achilles. Ankle x-ray was obtained, no acute fracture or dislocation noted. X-ray does show soft tissue swelling and mild to moderate arthritis. Will apply Joaquin wrap, administer pain meds and discharge with close outpatient Ortho and PCP follow-up.. 03/14 21:36 Order name: Ankle Left 3 View XRAY; Complete Time: 22:44 ci 03/14 23:24 Order name: Joaquin Wrap; Complete Time: 23:25 ci Administered Medications: 21:59 Drug: fentaNYL (PF) IM 50 mcg IM once Route: IM; Site: right deltoid; bm8 22:44 Follow up: Response: No adverse reaction bm8 Disposition Summary: 03/14/24 23:25 Discharge Ordered Notes: Location: Home ci Condition: Stable ci Diagnosis - Other specified arthritis, ankle and foot ci - Sprain of other ligament of left ankle ci Followup: ci - With: Private Physician - When: - Reason: Recheck today's complaints, Re-evaluation by your physician Discharge Instructions: - Discharge Summary Sheet ci - Ankle Sprain, [id number] ci - Arthritis, [id number] ci Forms: - Medication Reconciliation Form ci - Antibiotic Education ci - Prescription Opioid Use ci - Patient Portal Instructions ci - Leadership Thank You Letter ci Prescriptions: - Mobic 7.5 mg Oral tablet - take 1 tablet ORAL route once daily As needed take with food; 15 tablet; ci Refills: 0, Product Selection Permitted Signatures: Dispatcher [employer] EDMS Tammy Georges ci Gwendolyn Kennedy, RN RN km8 José Miguel Adkins RN RN bm8 Corrections: (The following items were deleted from the chart) 23:51 23:23 This 73 yrs old Female presents to ER via Wheelchair with complaints of ankle ci pain. ci 23:58 23:23 ED course: Patient arrives to the ED hemodynamically stable and in no acute ci distress. Left ankle atraumatic but does have moderate tenderness and swelling. Ankle x-ray was obtained, no acute fracture or dislocation noted. X-ray does show soft tissue swelling and mild to moderate arthritis. Will apply Joaquin wrap, administer pain meds and discharge with close outpatient Ortho and PCP follow-up.. ci
--- NOTE | 2024-03-14 23:26 | ER ---
Nurse's Notes [facility] Name: Dennise Story Age: 73 yrs Sex: Female : 1950 Arrival Date: 03/14/2024 Time: 21:03 Bed 15 Private MD: Diagnosis: Other specified arthritis, ankle and foot;Sprain of other ligament of left ankle Presentation: 03/14 21:17 Chief complaint: Patient states: around 1730 was standing and felt a "pop" in her left km8 ankle and immediately had pain and unable to bare weight; no trauma or injury noted prior. Coronavirus screen: Client denies travel out of the [place] in the last 14 days. Ebola Screen: No symptoms or risks identified at this time. Initial Sepsis Screen: Does the patient meet any 2 criteria? No. Patient's initial sepsis screen is negative. Does the patient have a suspected source of infection? No. Patient's initial sepsis screen is negative. Risk Assessment: Do you want to hurt yourself or someone else? Patient reports no desire to harm self or others. Onset of symptoms was March 14, 2024 at 17:30. 21:17 Method Of Arrival: Wheelchair km8 21:17 Acuity: KEREN 4 km8 Triage Assessment: 21:18 General: Appears in no apparent distress. uncomfortable, Behavior is calm, cooperative, km8 appropriate for age. Pain: Complains of pain in left lateral ankle Pain currently is 5 out of 10 on a pain scale. at worst was 10 out of 10 on a pain scale. EENT: No signs and/or symptoms were reported regarding the EENT system. Neuro: Level of Consciousness is awake, alert, obeys commands, Oriented to person, place, time, situation. Cardiovascular: Denies chest pain, shortness of breath, Patient's skin is warm and dry. Respiratory: Airway is patent Respiratory effort is even, unlabored, Respiratory pattern is regular, symmetrical. GI: No signs and/or symptoms were reported involving the gastrointestinal system. : No signs and/or symptoms were reported regarding the genitourinary system. Derm: No signs and/or symptoms reported regarding the dermatologic system. Skin is intact, is healthy with good turgor, Skin is dry, Skin is pink, warm \\T\\ dry. normal, Skin temperature is warm. Musculoskeletal: Range of motion: limited in left ankle Swelling present in right leg and left leg. Historical: - Allergies: 21:18 GABAPENTIN; 21:18 Keflex; 21:18 Lidocaine; 21:18 Morphine; 21:18 PENICILLINS; - Home Meds: 21:18 Eliquis 2.5 mg Oral tab 1 tab 2 times per day [Active]; - PMHx: 21:18 Atrial fibrillation; - PSHx: 21:18 Appendectomy; back surgery; hysterectomy; knee replacement; - Immunization history:: Adult Immunizations up to date. - Infectious Disease History:: Denies. - Social history:: Smoking status: Patient denies any tobacco usage or history of. Patient/guardian denies using alcohol, street drugs. - History obtained from: , daughter. Screenin:42 [facility] ED Fall Risk Assessment (Adult) History of falling in the last 3 months, bm8 including since admission Yes- single mechanical fall (1 pt) Confusion or Disorientation No (0 pts) Intoxicated or Sedated No (0 pts) Impaired Gait Yes (1 pt) Mobility Assist Device Used No (0 pt) Altered Elimination No (0 pt) Score/Fall Risk Level 0 - 2 = Low Risk Oriented to surroundings, Maintained a safe environment, Educated pt \\T\\ family on fall prevention, incl call for assistance when getting out of bed. Abuse screen: Denies threats or abuse. Nutritional screening: No deficits noted. Tuberculosis screening: No symptoms or risk factors identified. Assessment: 21:42 General: Appears in no apparent distress. uncomfortable, Behavior is calm, cooperative, bm8 appropriate for age. Pain: Complains of pain in left ankle and left lateral ankle Pain does not radiate. Pain radiates to left leg Pain currently is 8 out of 10 on a pain scale. Quality of pain is described as aching. Neuro: No deficits noted. Level of Consciousness is awake, alert, obeys commands, Oriented to person, place, time, situation. Cardiovascular: Heart tones S1 S2 present Capillary refill < 3 seconds Patient's skin is warm and dry. Cardiovascular: Edema is 1+ to left ankle, left foot, left toes, right ankle, right foot and right toes. Respiratory: Airway is patent Respiratory effort is even, unlabored, Respiratory pattern is regular, symmetrical. Musculoskeletal: Swelling present in left lateral ankle and lateral aspect of left foot and left ankle. 22:45 Reassessment: Patient appears in no apparent distress at this time. Patient and/or bm8 family updated on plan of care and expected duration. Pain level reassessed. Patient is alert, oriented x 3, equal unlabored respirations, skin warm/dry/pink. Patient states symptoms have improved. "pt states that the pain in the leg/ankle is improving." pt wants to know what is going to happen after xrays, explained to pt it all depends on what is seen on xray and this nurse is still waiting orders. Vital Signs: 21:17 BP 152 / 66; Pulse 62; Resp 18; Temp 98(TE); Pulse Ox 97% on R/A; Weight 104.33 kg (R); km8 Height 5 ft. 6 in. ; Pain 5/10; 22:45 BP 133 / 60; Pulse 58; Resp 17; Temp 98; Pulse Ox 98% ; Pain 4/10; bm8 23:51 BP 145 / 77; Pulse 67; Resp 18; Temp 98; Pulse Ox 99% ; Pain 2/10; bm8 21:17 Body Mass Index 37.12 (104.33 kg, 167.64 cm) km8 21:17 Pain Scale: Adult km8 22:45 Pain Scale: Adult bm8 23:51 Pain Scale: Adult bm8 Julieth Coma Score: 22:45 Eye Response: spontaneous(4). Motor Response: obeys commands(6). Verbal Response: bm8 oriented(5). Total: 15. ED Course: 21:06 Patient arrived in ED. ra3 21:18 Triage completed. km8 21:18 Arm band placed on right wrist. km8 21:20 Tammy Georges is Attending Physician. ci 21:37 José Miguel Adkins, RN is Primary Nurse. bm8 21:42 Patient has correct armband on for positive identification. Bed in low position. Call bm8 light in reach. Side rails up X 1. Adult w/ patient. Pulse ox on. NIBP on. Door closed. Noise minimized. Ice pack to injury. Verbal reassurance given. 21:42 No provider procedures requiring assistance completed. bm8 22:13 Ankle Left 3 View XRAY In Process Unspecified. EDMS 22:45 Patient did not have IV access during this emergency room visit. bm8 23:51 Provided Education on: post er care. bm8 23:51 Joaquin wrap to left ankle. bm8 Administered Medications: 21:59 Drug: fentaNYL (PF) IM 50 mcg IM once Route: IM; Site: right deltoid; bm8 22:44 Follow up: Response: No adverse reaction bm8 Medication: 21:42 VIS not applicable for this client. bm8 Outcome: 23:25 Discharge ordered by . ci 23:51 Discharged to home via wheelchair, bm8 23:51 Condition: stable 23:51 Discharge instructions given to patient, family, Instructed on discharge instructions, follow up and referral plans. medication usage, safety practices, Demonstrated understanding of instructions, follow-up care, medications, Prescriptions given X 1, 23:53 Patient left the ED. bm8 Signatures: Dispatcher [employer] EDMS IheonunekTammy coker Katie, RN RN 8 Kelle Scott 3 José Miguel Adkins, RN RN bm8
[2024-03-15 01:21] VITALS: BP 145/77; TEMP 98; O2SAT 99
== END 2024-03-14 23:53 | disposition home or self-care (01) ==
LOC: ER 21:03
DX: M13.872 Other specified arthritis, left ankle and foot (principal); S93.492A Sprain of other ligament of left ankle, initial encounter
CPT/HCPCS: 96372; 99284; J3010